=== PATIENT | male | born 1960 | race Caucasian/White ===

== ENCOUNTER 2016-10-21 13:57 | Emergency (ER) | payer SELFPAY ==
[~2016-10-21] VITALS: Ht 165.1 cm; Wt 91.0 kg
[2016-10-21] MEDS ORDERED: SODIUM CHLORIDE 0.9% 1,000 ML IV ONE (15:57)
[2016-10-21] MEDS ORDERED: ONDANSETRON HCL 4MG/2ML VIAL IV STA (15:57)
[2016-10-21] MEDS ORDERED: KETOROLAC 30MG/ML VIAL IV STA (15:57)
[2016-10-21] MEDS ORDERED: FAMOTIDINE 20MG/2ML VIAL IV STA (15:57)
[2016-10-21 16:21] LABS: BASOPHILS % 0.3 % (0.0-2.0); EOSINOPHILS % 0.1 % (0.0-5.0); HEMATOCRIT. 44.4 % (42.0-52.0); LYMPHOCYTES % 10.7 % (20.0-50.0); MEAN CORPUSCULAR HEMOGLOBIN 29.2 pg (28.0-32.0); MEAN CORPUSCULAR HGB CONC 33.8 g/dL (31.0-37.0); MEAN CORPUSCULAR VOLUME 86.4 fL (80.0-94.0); MEAN PLATELET VOLUME 8.5 fl (7.4-10.4); MONOCYTES % 7.5 % (2.0-8.0); NEUTROPHILS % 81.4 % (40.0-76.0); PLATELET 262 x1000/uL (130-400); RED BLOOD CELL COUNT 5.14 mill/uL (4.7-6.1); RED CELL DISTRIBUTION WIDTH 13.6 % (11.6-14.6); WHITE BLOOD COUNT 16.2 x1000/uL (4.5-11.0)
[2016-10-21 16:23] LABS: CHLORIDE 107 mEq/L (98-107); INDEX HEMOLYSI 1 (1-3); INDEX ICTERIC 1 (1-4); INDEX LIPEMIC 1 (1-3)
[2016-10-21 16:26] LABS: ALBUMIN 3.2 g/dL (3.4-5.0); ANION GAP 13; CALCIUM 8.6 mg/dL (8.5-10.1); CARBON DIOXIDE 26 mEq/L (21-32); PROTHROMBIN TIME 10.7 sec; UREA NITROGEN BLOOD 13 mg/dL (7-21)
[2016-10-21 16:32] LABS: ALANINE AMINOTRANSFERASE 20 IU/L (13-61); LIPASE 105 IU/L (73-393); eGFR > 60 mL/min (>60)
[2016-10-21 18:37] LABS: CLARITY URINE CLEAR (CLEAR); COLOR URINE YELLOW (YELLOW); GLUCOSE URINE NEGATIVE (NEGATIVE); KETONES URINE NEGATIVE (NEGATIVE); LEUKOCYTE ESTERASE URINE NEGATIVE (NEGATIVE); NITRITE URINE NEGATIVE (NEGATIVE); OCCULT BLOOD URINE 3+ (NEGATIVE); PH URINE 6.5 (4.5-8.0); PROTEIN URINE 3+ (NEGATIVE); SPECIFIC GRAVITY URINE 1.014 (1.005-1.030); UROBILINOGEN URINE 0.2 E.U./dL (0.2-1.0)
[2016-10-21 19:05] LABS: BACTERIA URINE TRACE; SQUAMOUS EPITHELIAL CELL URINE RARE /lpf (RARE/1+); WBC URINE 0-2 /hpf (0-2)
[2016-10-21 19:39] VITALS: BP 133/86
== END 2016-10-21 21:46 | disposition home or self-care (01) ==
LOC: ER 15:49
DX: N20.0 Calculus of kidney (principal); F17.210 Nicotine dependence, cigarettes, uncomplicated
CPT/HCPCS: 36415; 74176; 80053; 81001; 83690; 85025; 85610; 96361; 96374; 96375; 99285; J1885; J2405; J3490; J7030; Z7610

== ENCOUNTER 2016-10-22 07:49 | Emergency (ER) | payer SELFPAY ==
[~2016-10-22] VITALS: Ht 162.6 cm; Wt 84.0 kg
[2016-10-22] MEDS ORDERED: KETOROLAC 60MG/2ML VIAL IM ONE (09:30)
[2016-10-22 10:19] VITALS: BP 159/103
== END 2016-10-22 10:53 | disposition home or self-care (01) ==
LOC: ER 09:32
DX: M54.5 Low back pain (principal); N20.0 Calculus of kidney; Z72.0 Tobacco use
CPT/HCPCS: 96372; 99283; J1885

== ENCOUNTER 2021-12-23 13:09 | Emergency (ER) | payer MEDICAID ==
[~2021-12-23] VITALS: Ht 162.6 cm; Wt 82.0 kg
[2021-12-23 13:22] VITALS: BP 154/106
[2021-12-23] MEDS ORDERED: IBUPROFEN 600MG TABLET PO ONE (14:45)
[2021-12-23] MEDS ORDERED: NAPR-681 MT (14:55)
[2021-12-23] MEDS ORDERED: OFLO5DRO4 RIGHT EAR (14:55)
== END 2021-12-23 15:43 | disposition home or self-care (01) ==
LOC: ER 13:09
DX: H60.91 Unspecified otitis externa, right ear (principal); M25.511 Pain in right shoulder
CPT/HCPCS: 73030; 99283